=== PATIENT | male | born 1945 | race Caucasian/White ===

== ENCOUNTER → 2017-12-05 | Day surgery (SDC) | payer MEDICARE, OTHER ==
[~2017-12-05] MED LIST: ALBUTEROL2.5 MG/31 INH; ALLEGRA ALLERGY60 MG PO; ALLOPURINOL 10100 M1 PO; ALLOPURINOL 30300 M1 PO; ALLOPURINOL 30300 M2 PO; AMITRIPTYLINE H25 M2 PO; AMITRIPTYLINE100 MG PO; AMLODIPINE BESY10 MG PO; ATORVASTATIN CA40 MG PO; BUSPIRONE HCL10 MG PO; CENTRUM SILVER1 EAC2 PO; COLACE100 MG PO; DEXILANT60 MG PO; FLOMAX0.4 MG PO; HYDROCHLOROTHIA25 M2 PO; IMDUR 30 MG TAB30 M1 PO; LINZESS72 MCG PO; LISINOPRIL20 MG PO; LOPRESSOR100 M1 PO; LOPRESSOR50 PO; MARINOL 2.5 MG2.5 M1 PO; NORCO 10-325 T1 EACH PO; NORCO 5-325 TA1 EACH PO; ONDANSETRON HCL4 M2 PO; OXYCODONE HCL 55 MG PO; PERCOCET PO; PRINIVIL40 MG PO; PROAIR HFA8.5 GM INH; PROTONIX40 M1 PO; SINGULAIR 10 MG10 M1 PO; SPIRIVA INH; TRELEGY ELLIPT1 EACH INH; TRICOR145 MG PO; XARELTO10 M1 PO; ZETIA10 MG PO; ZYRTEC10 M5 PO
[2017-12-05 08:26] LABS: HEMATOCRIT 40.8 % (42.0-52.0); HEMOGLOBIN 13.7 gm/dL (14.0-18.0); MCH 29.8 pg (26.0-34.0); MCHC 33.7 g/dL (28.0-37.0); MCV 88.5 fL (80.0-100.0); MPV 7.6 fl. (7.2-11.1); RBC 4.6 mil/uL (4.50-6.00); RDW-CV 13.6 % (10.5-14.5); WBC 9.7 thou/uL (4.0-11.0)
[2017-12-05 08:29] LABS: CALCIUM 8.8 mg/dL (8.5-10.1); CREATININE 1.3 mg/dL (0.6-1.3); POTASSIUM 3.9 mmol/L (3.5-5.1)
--- NOTE | 2017-12-12 09:58 | OP ---
[address] [address] OPERATIVE REPORT Name: LEIGH QUIGLEY Room: [facility]#: [id number] Admission: 12/05/17 Attend Phys: Amrit August II Discharge: Date of : 45 Report #: [id number] THIS REPORT FOR: //name// CC: FAM unknown Amrit August DATE OF SERVICE: 12/05/2017 PREOPERATIVE DIAGNOSIS: Left shoulder lateral clavicle osteoarthritis. POSTOPERATIVE DIAGNOSES: 1. Left shoulder lateral clavicle osteoarthritis. 2. Rotator cuff tear, lateral supraspinatus. 3. Bony cartilage debris with labral tears of glenohumeral joint. 4. Subacromial impingement. PROCEDURES PERFORMED: 1. Left shoulder arthroscopic surgery with rotator cuff repair. 2. Lateral clavicle excision. 3. Extensive debridement of glenohumeral joint and labral tears. 4. Subacromial decompression. SURGEON: Amrit August II, DO. LVN: OSITO Streeter. ANESTHESIA: Per operative record. ESTIMATED BLOOD LOSS: Minimal. ANTIBIOTICS: Per operative record. DRAINS: None. COMPLICATIONS: None. CONDITION OF THE PATIENT: Stable to the recovery room. DESCRIPTION OF PROCEDURE: The patient was taken to the operative suite and placed supine on the operating table. After appropriate anesthesia, the patient's left shoulder was sterilely prepped and draped in modified beach chair position and all bony prominences were well padded. Procedure began by posterior portal incision. The arthroscope was advanced in the joint. There was only mild fraying of the biceps tendon. However, there were tears of the labrum throughout the superior, inferior as well as posterior portion, so bone carotid glenohumeral joint. Utilizing an anterior portal and shaver, [address] [address] OPERATIVE REPORT Name: LEIGH QUIGLEY Room: [facility] Sigifredo#: [id number] Admission: 12/05/17 Attend Phys: Amrit August II Discharge: Date of : 45 Report #: [id number] extensive debridement was performed to the superior, inferior as well as anterior and posterior portions of the glenohumeral joint and labral regions to remove all bone and cartilage debris and tears when and extensive debridement will be performed. Otherwise, there was found to be a lateral split-thickness tear of the supraspinatus noted at its lateral margin on the undersurface. This was located utilizing an 18-gauge needle. The arthroscope was then advanced to the subacromial space. There was significant subacromial impingement and subacromial decompression with partial anterior acromioplasty was performed. Additional centimeter of lateral clavicle was then excised using a shaver to the distal centimeter clavicle. There was found to be rotator cuff tear at the lateral margin of the supraspinatus, which was more acutely torn on the bursal side, measuring approximately 1.5 centimeter. This was debrided with a shaver down to the free edge down to the fresh tissue. A bone bed was then repaired along the lateral humerus down to bleeding tissue. One suture was then placed in the rotator cuff tear. It was then anchored to the lateral humerus with appropriate anchoring and appropriate tension. This was probed and found to be intact, with excellent repair of the rotator cuff and full range of motion of the shoulder, without evidence of re-tear. Final irrigation was taken. The shoulder was then drained of arthroscopic fluid, closed with 4-0 nylon in simple fashion. Dermabond dressing applied as well as sling. The patient transported to recovery in stable condition. Counts were correct. <ELECTRONICALLY SIGNED> By: Amrit August II, 12/12/17 [id number] August II DO /nt
== END | disposition home or self-care (01) ==
LOC: M.SUR 12-04 11:43
PROVIDERS: Orthopaedic Surgery
DX: M19.012 Primary osteoarthritis, left shoulder (principal); M75.102 Unspecified rotator cuff tear or rupture of left shoulder, not specified as traumatic; S43.492A Other sprain of left shoulder joint, initial encounter; M24.112 Other articular cartilage disorders, left shoulder; M75.42 Impingement syndrome of left shoulder; M16.11 Unilateral primary osteoarthritis, right hip; J44.9 Chronic obstructive pulmonary disease, unspecified; I25.10 Atherosclerotic heart disease of native coronary artery without angina pectoris; Z98.890 Other specified postprocedural states; Z88.8 Allergy status to other drugs, medicaments and biological substances; Z79.899 Other long term (current) drug therapy; Z79.891 Long term (current) use of opiate analgesic; X58.XXXA Exposure to other specified factors, initial encounter; Y93.89 Activity, other specified; Y92.89 Other specified places as the place of occurrence of the external cause; Y99.8 Other external cause status

== ENCOUNTER → 2018-06-13 | Outpatient (CLI) | payer MEDICARE, OTHER ==
--- NOTE | ~2018-06-13 | EKG ---
[place] [address] ELECTROCARDIOGRAM REPORT Name: LEIGH QUIGLEY Room: [facility]#: [id number] Admission: 06/13/18 Attend Phys: Amrit August II Discharge: Date of : 45 Report #: [id number] THIS REPORT FOR: //name// [facility] Test Date: 2018-06-13 Test Time: 07:47:17 Pat Name: LEIGH QUIGLEY Department: Room: Gender: M Top Installer: : 1945 Requested By: Amrit August Order Number: [id number] Reading MD: Measurements Intervals [place] Rate: 66 P: 64 [place]: 198 QRS: 51 QRSD: 94 T: 56 QT: 380 QTc: 399 Interpretive Statements Sinus rhythm Abnormal R-wave progression, early transition Compared to ECG 05/01/2017 13:40:21 No significant changes [email or web address] By: 0747 0747 Epiphany Epiphany, /EPI
== END ==
LOC: M.MRI 06-11 13:30
DX: S83.241A Other tear of medial meniscus, current injury, right knee, initial encounter (principal); M17.11 Unilateral primary osteoarthritis, right knee; X58.XXXA Exposure to other specified factors, initial encounter; Y93.89 Activity, other specified; Y92.89 Other specified places as the place of occurrence of the external cause; Y99.8 Other external cause status

== ENCOUNTER 2018-07-09 06:42 | Inpatient (IN) | payer MEDICARE, OTHER ==
[2018-06-13 07:26] LABS: HEMATOCRIT 40.4 % (42.0-52.0); HEMOGLOBIN 13.4 gm/dL (14.0-18.0); MCH 29.6 pg (26.0-34.0); MCHC 33.1 g/dL (28.0-37.0); MCV 89.3 fL (80.0-100.0); MPV 7.8 fl. (7.2-11.1); RBC 4.52 mil/uL (4.50-6.00); RDW-CV 14.1 % (10.5-14.5); WBC 8.2 thou/uL (4.0-11.0)
[2018-06-13 07:27] LABS: URINE BILIRUBIN NEGATIVE (Negative); URINE BLOOD NEGATIVE (Negative); URINE CLARITY CLEAR; URINE COLOR YELLOW; URINE GLUCOSE-RANDOM NEGATIVE (Negative); URINE KETONES NEGATIVE (Negative); URINE LEUKOCYTES-REFLEX NEGATIVE (Negative); URINE NITRITE-REFLEX NEGATIVE (Negative); URINE PROTEIN NEGATIVE (Negative); URINE UROBILINOGEN 0.2 E.U./dl (0.2-1.0)
[2018-06-13 07:46] LABS: ALBUMIN 3.5 g/dL (3.4-5.0); CALCIUM 9.1 mg/dL (8.5-10.1); CREATININE 1.7 mg/dL (0.6-1.3); POTASSIUM 4.2 mmol/L (3.5-5.1); TOTAL BILIRUBIN 0.6 mg/dL (<0.1-1.0); TOTAL PROTEIN 6.5 g/dL (6.4-8.2)
[2018-06-13 07:58] LABS: PROTIME 10.7 Seconds (9.20-11.50)
[~2018-07-09] VITALS: Ht 175.3 cm; Wt 84.8 kg
--- NOTE | ~2018-07-09 | OP ---
[facility] [address] [place] [address] OPERATIVE REPORT Name: LEIGH QUIGLEY Room: [address] M.R.#: [id number] Admission: 07/09/18 Attend Phys: Leandro Chinchilla Discharge: 07/10/18 Date of : 45 Report #: [id number] THIS REPORT FOR: //name// CC: GHAZALA physician/PCP Amrit Dc DATE OF SERVICE: 07/09/2018 PREOPERATIVE DIAGNOSIS: Right knee osteoarthritis. POSTOPERATIVE DIAGNOSIS: Right knee osteoarthritis. PROCEDURE: Right total knee arthroplasty with [employer]. ANESTHESIA: General endotracheal. ESTIMATED BLOOD LOSS: 50 mL. ANTIBIOTICS: Ancef preoperatively. DRAINS: Medium Hemovac. COMPLICATIONS: None. CONDITION: The patient is stable to recovery room. IMPLANTS: Listed in the operative record and progress note. BRIEF HISTORY: The patient was seen in the preoperative area. Preop H and P was performed. Site was marked, questions were answered. Risks and benefits were discussed with the patient in detail about surgery. The patient wished to proceed and assumed all risks. DESCRIPTION OF PROCEDURE: The patient was taken to the operative suite and placed supine on the operating table and given appropriate anesthesia. A well-padded tourniquet was applied to the upper thigh, which was inflated to 300 mmHg after gravity exsanguination. The operative knee was sterilely prepped and draped. Surgery began by a midline incision. This was carried down through subcutaneous tissues. A medial parapatellar arthrotomy was performed and carried down to bone. The patella was then everted and excess soft tissue was removed from around the femur. The femoral cutting block was then applied, checked with a drop trey for rotational alignment, pinned in appropriate position and appropriate cuts were made. A 4-in-1 cutting block was then applied, checked for rotational alignment, pinned in appropriate position and appropriate cuts were made. The tibia was then exposed. The excess [place] [address] OPERATIVE REPORT Name: LEIGH QUIGLEY Room: [address] [place] ..#: [id number] Admission: 07/09/18 Attend Phys: Leandro Chinchilla Discharge: 07/10/18 Date of : 45 Report #: [id number] Retractor was placed on the collateral ligaments and the tibial cutting block was applied, pinned in appropriate position, checked with a drop trey for rotational alignment and slope and appropriate cut was made. The tibial bone was removed. The tibial base plate was then applied and checked for rotational alignment with a drop trey and pinned in appropriate position. The femur was then applied and box cut was reamed. This was then trialed with appropriate spacer, which showed excellent fit and fill and excellent stability of the knee through all range of motion. The patella was reamed in appropriate fashion and sized to appropriate size. The three peg holes were drilled and it was then trialed and showed excellent flexion, extension and excellent tracking of the patella within the groove. These trials were removed. The tibia was punched in appropriate fashion. Bone ends were cleansed with Pulsavac irrigation. Cement was mixed and applied to the final implants. These were malleted into position and held the knee in extension and compressed to allow the cement to cure. After it cured, excess was removed using [place] and osteotome. The knee was then copiously irrigated and the final spacer was then malleted into position. The tourniquet was deflated. Hemostasis was obtained with electrocautery. The pain cocktail was injected. PRP gel was sprayed throughout the internal aspects of the knee. A medium Hemovac drain was applied. Capsule was closed with #2 FiberWire and 1 Vicryl in [id number] fashion. Skin was closed with 2-0 Vicryl and running 3-0 Monocryl. Dermabond and sterile dressing applied. Billy wrap and PolarCare applied. The patient transported to the recovery room in stable condition. Counts were correct throughout the procedure. By: 0850 [id number] August II DO /nt
[2018-07-09 07:17] VITALS: BP 134/79
[2018-07-09 11:33] VITALS: BP 120/66
[2018-07-09 16:00] VITALS: BP 126/81
[2018-07-10] VITALS: BP 145/76
[2018-07-10 04:00] VITALS: BP 151/89
[2018-07-10 09:45] VITALS: BP 132/73
[2018-07-10 10:56] VITALS: BP 132/73
[2018-07-10] MEDS ORDERED: PERCOCET PO (11:36)
[2018-07-10] MEDS ORDERED: XARELTO10 MG PO (11:38)
[2018-07-10] MEDS ORDERED: COLACE100 MG PO (14:29)
[2018-07-10] MEDS ORDERED: PROTONIX40 M1 PO (14:29)
== END 2018-07-10 11:50 | disposition home health service (06) | DRG 470 ==
LOC: M.TBA 06:42 → M.ORTHSURG 06:42 → M.PRE 07:04 → M.ORTHSURG 10:39 → M.PRE 12:41 → M.ORTHSURG 07-10 11:50
PROVIDERS: Orthopaedic Surgery; ADMIT Internal Medicine
PROC: 0SRC0J9 Replacement of Right Knee Joint with Synthetic Substitute, Cemented, Open Approach (ICD-10-PCS; principal; 2018-07-09)
DX: M17.11 Unilateral primary osteoarthritis, right knee (principal); J45.901 Unspecified asthma with (acute) exacerbation; J44.9 Chronic obstructive pulmonary disease, unspecified; K21.9 Gastro-esophageal reflux disease without esophagitis; M10.9 Gout, unspecified; I25.10 Atherosclerotic heart disease of native coronary artery without angina pectoris; I10 Essential (primary) hypertension; E78.5 Hyperlipidemia, unspecified; G47.30 Sleep apnea, unspecified; Z98.42 Cataract extraction status, left eye; Z98.41 Cataract extraction status, right eye; Z88.5 Allergy status to narcotic agent; Z87.11 Personal history of peptic ulcer disease; Z88.8 Allergy status to other drugs, medicaments and biological substances; Z90.49 Acquired absence of other specified parts of digestive tract